=== PATIENT | female | born 1965 | race Caucasian/White ===

== ENCOUNTER → 2017-05-21 09:19 | Outpatient (CLI) | payer OTHER, SELFPAY ==
--- NOTE | 2017-05-21 10:00 | MRI_ITS ---
STUDY: MRI BRAIN WITH AND WITHOUT CONTRAST REASON FOR EXAM: Female, 52 years old. MS, diplopia TECHNIQUE: Standardized multiplanar fat and water weighted pulse sequences were obtained. 9 ml of Gadavist contrast material was administered intravenously for the contrast portion of the examination. COMPARISON: 03/28/2016 FINDINGS: Normal size of the ventricles and extra-axial spaces for the patient's age. Multiple stable areas of abnormal T2 hyperintensity are present in the periventricular and subcortical white matter compatible with demyelinating disease. No new lesions are seen. None of the pre-existing lesions are associated with restricted diffusion or postcontrast enhancement currently. Normal bilateral basal ganglia. Normal thalami. There is no extra-axial fluid accumulation. Normal flow voids within the major intracranial circulation suggesting patency by spin echo criteria. Normal venous enhancement. There is no enhancing intra-axial or extra-axial abnormality. Normal sella turcica, pituitary gland, infundibular stalk, optic chiasm and hypothalamus. Stable pineal cyst. Normal midbrain, manuel and medulla. Normal cerebellum. Normal basal cisterns. Normal bilateral temporal bones. Normal bilateral internal auditory canals. No demonstrated orbital abnormality, within the constraints of a routine brain study. Normal visualized paranasal sinuses. Hyperostosis frontalis interna. Normal visualized soft tissue structures. Normal visualized upper cervical spine. MRI/Brain W/WO Contrast IMPRESSION: Stable MRI appearance of multiple white matter lesions compatible with demyelinating disease. No new lesions are seen. None of the lesions are currently associated with restricted diffusion or postcontrast enhancement. Stable pineal cyst. Electronically Signed: Robert Rocha MD at 11:06 EDT Tel , Service support ,
== END ==
PROVIDERS: Family Provider Family Medicine; PCP Family Medicine; Visit Provider Internal Medicine
DX: G35 Multiple sclerosis (principal)
CPT/HCPCS: 70553; A9585

== ENCOUNTER 2017-07-31 09:22 | Emergency (ER) | payer OTHER, SELFPAY ==
[2017-07-31 09:23] VITALS: BP 150/103; PULSE 115; RESP 23; TEMP 37.1; O2SAT 98; BMI 31.3
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
[2017-07-31 11:18] VITALS: BP 125/94; PULSE 98; RESP 20; O2SAT 97
== END 2017-07-31 11:19 | disposition home or self-care (01) ==
LOC: ED 10:20
PROVIDERS: Emergency Provider Emergency Medicine; Family Provider Family Medicine; PCP Family Medicine
DX: S50.12XA Contusion of left forearm, initial encounter (principal); S80.02XA Contusion of left knee, initial encounter; S70.02XA Contusion of left hip, initial encounter; V89.2XXA Person injured in unspecified motor-vehicle accident, traffic, initial encounter; Y93.89 Activity, other specified; Y92.9 Unspecified place or not applicable; G35 Multiple sclerosis
CPT/HCPCS: 73090; 73502; 73564; 99282

== ENCOUNTER → 2019-08-05 06:16 | Outpatient (CLI) | payer OTHER, SELFPAY ==
[2019-08-05 06:59] LABS: Absolute Lymphocyte Count 6.03 X10^3/uL (0.83-4.51); Absolute Neutrophil Count 4.1 X10^3/uL (2.0-7.7); Basophil# 0.06 X10^3/uL; Basophil% 0.5 % (0-1); Eosinophil# 0.31 X10^3/uL; Eosinophils% 2.8 % (0-5); Hematocrit 40.5 % (37-47); Hemoglobin 14.3 g/dL (12.0-15.0); Lymphocyte # 6.03 X10^3/ul (4.0); Lymphocyte % 53.9 % (19-41); Mean Corp Hgb Conc 35.3 g/dL (32-36); Mean Corpuscular Volume 87.9 fL (81-99); Mean Platelet Vol. 10.3 fl (6.2-12.0); Monocyte# 0.63 X10^3/uL; Monocyte% 5.6 % (0-10); NRBC Flagged by Analyzer 0.5 % (0-5); Neutrophil # 4.09 X10^3/uL (2.7-7.7); Neutrophil % 36.7 % (47-70); POSITIVE DIFFERENTIAL YES; Platelet Count 182 K/mm3 (150-450); RBC Distribution Width SD 44.5 fl (35.1-43.9); Red Blood Count 4.61 M/mm3 (4.2-5.4); White Blood Count 11.2 K/mm3 (4.4-11.0)
[2019-08-05 07:02] LABS: Differential Indicated SCAN CRITERIA MET
[2019-08-05 07:28] LABS: ALB/GLOB Ratio 1.1 RATIO (0.9-2.4); AST(SGOT) 24 U/L (15-37); Alanine Aminotransfer ALT/SGPT 40 U/L (13-56); Albumin, Serum 3.6 g/dL (3.2-5.0); Alkaline Phosphatase 132 U/L (45-117); Anion Gap 5 (5-15); BUN 11 mg/dL (7-18); BUN/Creat Ratio 16.8 RATIO (10-20); Calcium,Total 8.9 mg/dL (8.5-10.1); Chloride 105 mmol/L (98-107); Cholesterol 214 mg/dL (200); Creatinine, Serum 0.65 mg/dL (0.55-1.02); EST Glomerular Filtration Rate 100 mL/min (>60); Est Glom Filt Rate - Afr Amer 121 mL/min (>60); Globulin 3.3 g/dL (2.2-4.2); Glucose 275 mg/dL (74-106); High Density Lipoprotein 30 mg/dL; Microalbumin,Random Urine 33.5 mg/L (NO RANGE EST.); Microalbumin:Creatinine Ratio 20.3 mg/g CRE (<30 mg/g CRE); Potassium 3.6 mmol/L (3.5-5.1); Protein, Total 6.9 g/dL (6.4-8.2); Sodium Level 139 mmol/L (136-145); Triglycerides 847 mg/dL
[2019-08-05 08:06] LABS: Hemoglobin A1c 9.2 % (3.8-5.6)
[2019-08-05 08:24] LABS: Vitamin D,25 Hydroxy 57.4 ng/mL
== END ==
PROVIDERS: PCP Family Medicine; Referring Provider Family Medicine; Visit Provider Family Medicine
DX: E78.5 Hyperlipidemia, unspecified (principal); D72.829 Elevated white blood cell count, unspecified; E11.65 Type 2 diabetes mellitus with hyperglycemia; Z51.81 Encounter for therapeutic drug level monitoring
CPT/HCPCS: 36415; 80053; 80061; 82043; 82306; 82570; 83036; 85025

== ENCOUNTER → 2020-07-01 09:07 | Outpatient (CLI) | payer OTHER, SELFPAY ==
[2020-07-01 10:14] LABS: Absolute Lymphocyte Count 6.95 X10^3/uL (0.83-4.51); Absolute Neutrophil Count 5.6 X10^3/uL (2.0-7.7); Basophil# 0.07 X10^3/uL; Basophil% 0.5 % (0-1); Eosinophil# 0.23 X10^3/uL; Eosinophils% 1.7 % (0-5); Hematocrit 42.3 % (37-47); Lymphocyte # 6.95 X10^3/ul (0.83-4.51); Lymphocyte % 51.2 % (19-41); Mean Corp Hgb Conc 35.5 g/dL (32-36); Mean Corpuscular Hgb 31.4 pg (27.0-32.0); Mean Corpuscular Volume 88.5 fL (81-99); Mean Platelet Vol. 10.5 fl (6.2-12.0); Monocyte# 0.61 X10^3/uL; Monocyte% 4.5 % (0-10); NRBC Flagged by Analyzer 0.7 % (0-5); Neutrophil # 5.62 X10^3/uL (2.7-7.7); Neutrophil % 41.4 % (47-70); POSITIVE DIFFERENTIAL YES; POSITIVE MORPHOLOGY YES; Platelet Count 227 K/mm3 (150-450); RBC Distribution Width CV 14.4 % (11.6-14.6); RBC Distribution Width SD 46.1 fl (35.1-43.9); Red Blood Count 4.78 M/mm3 (4.2-5.4); White Blood Count 13.6 K/mm3 (4.4-11.0)
[2020-07-01 10:17] LABS: Differential Indicated SCAN CRITERIA MET
[2020-07-01 10:41] LABS: Reactive Lymphocyte 1+
[2020-07-01 10:45] LABS: Vitamin D,25 Hydroxy 41.7 ng/mL
[2020-07-01 11:02] LABS: ALB/GLOB Ratio 1.1 RATIO (0.9-2.4); AST(SGOT) 22 U/L (15-37); Alanine Aminotransfer ALT/SGPT 31 U/L (13-56); Albumin, Serum 3.9 g/dL (3.2-5.0); Alkaline Phosphatase 166 U/L (45-117); Anion Gap 9 (5-15); BUN 15 mg/dL (7-18); BUN/Creat Ratio 21.5 RATIO (10-20); Calcium,Total 9.1 mg/dL (8.5-10.1); Chloride 97 mmol/L (98-107); EST Glomerular Filtration Rate 93 mL/min (>60); Est Glom Filt Rate - Afr Amer 112 mL/min (>60); Globulin 3.4 g/dL (2.2-4.2); Glucose 327 mg/dL (74-106); Potassium 3.6 mmol/L (3.5-5.1); Protein, Total 7.3 g/dL (6.4-8.2); Sodium Level 133 mmol/L (136-145); Thyroid Stim Hormone (TSH) 1.37 uIU/mL (0.358-3.74)
== END ==
PROVIDERS: PCP Family Medicine
DX: G35 Multiple sclerosis (principal); R53.83 Other fatigue; E55.9 Vitamin D deficiency, unspecified; Z79.899 Other long term (current) drug therapy
CPT/HCPCS: 36415; 80053; 82306; 84443; 85025

== ENCOUNTER → 2021-06-30 | Outpatient (CLI) | payer OTHER, SELFPAY ==
[2021-06-30 13:32] LABS: Absolute Lymphocyte Count 6.62 X10^3/uL (0.83-4.51); Absolute Neutrophil Count 5.2 X10^3/uL (2.0-7.7); Basophil# 0.07 X10^3/uL; Basophil% 0.5 % (0-1); Eosinophil# 0.31 X10^3/uL; Eosinophils% 2.4 % (0-5); Hematocrit 41.7 % (37-47); Hemoglobin 15.3 g/dL (12.0-15.0); Lymphocyte # 6.62 X10^3/ul (0.83-4.51); Mean Corp Hgb Conc 36.7 g/dL (32-36); Mean Corpuscular Hgb 32.1 pg (27.0-32.0); Mean Corpuscular Volume 87.4 fL (81-99); Mean Platelet Vol. 9.9 fl (6.2-12.0); Monocyte# 0.68 X10^3/uL; Monocyte% 5.2 % (0-10); NRBC Flagged by Analyzer 0.8 % (0-5); Neutrophil # 5.22 X10^3/uL (2.7-7.7); Neutrophil % 40.2 % (47-70); POSITIVE DIFFERENTIAL YES; Platelet Count 238 K/mm3 (150-450); RBC Distribution Width CV 13.3 % (11.6-14.6); RBC Distribution Width SD 42.8 fl (35.1-43.9); Red Blood Count 4.77 M/mm3 (4.2-5.4)
[2021-06-30 13:37] LABS: Differential Indicated SCAN CRITERIA MET
[2021-06-30 14:08] LABS: ALB/GLOB Ratio 1.2 RATIO (0.9-2.4); AST(SGOT) 20 U/L (15-37); Alanine Aminotransfer ALT/SGPT 30 U/L (13-56); Albumin, Serum 4.1 g/dL (3.2-5.0); Alkaline Phosphatase 155 U/L (45-117); Anion Gap 6 (5-15); BUN 13 mg/dL (7-18); BUN/Creat Ratio 16.8 RATIO (10-20); Calcium,Total 9.5 mg/dL (8.5-10.1); Chloride 102 mmol/L (98-107); Creatinine, Serum 0.77 mg/dL (0.55-1.02); EST Glomerular Filtration Rate 82 mL/min (>60); Est Glom Filt Rate - Afr Amer 99 mL/min (>60); Globulin 3.4 g/dL (2.2-4.2); Glucose 303 mg/dL (74-106); Potassium 3.9 mmol/L (3.5-5.1); Protein, Total 7.5 g/dL (6.4-8.2); Sodium Level 135 mmol/L (136-145)
[2021-07-04 15:08] LABS: HEPATITIS B SURFACE AG Negative (Negative); Hepatitis A IgM Antibody Negative (Negative); Hepatitis B Core AB IgM Negative (Negative); Immunoglobulin A 143 mg/dL (87-352); Immunoglobulin G 485 mg/dL (586-1602); QNTFERON TB Mitogen Value > 10.00 IU/mL (.); QNTFERON TB Nil Value 0.61 IU/mL (.); QNTFERON TB1+ Ag Value 0.13 IU/mL (.); QNTFERON TB2+ Ag Value 0.16 IU/mL (.)
[2021-07-04 20:08] LABS: Hep C Antibodies <0.1 s/co ratio (0.0-0.9)
[2021-07-04 20:09] LABS: Immunoglobulin M 32 mg/dL (26-217); QNTIFERON TB Positive Criteria Negative (Negative)
== END | disposition home or self-care (01) ==
LOC: LAB 13:16
PROVIDERS: PCP Family Medicine; Referring Provider Nurse Practitioner Gerontology; Visit Provider Nurse Practitioner Gerontology
DX: R53.82 Chronic fatigue, unspecified (principal); Z79.899 Other long term (current) drug therapy
CPT/HCPCS: 36415; 80053; 80074; 82784; 85025; 86480

== ENCOUNTER → 2021-09-29 | Outpatient (CLI) | payer OTHER, SELFPAY ==
--- NOTE | 2021-09-29 15:30 | MRI_ITS ---
EXAM: MR HEAD WITHOUT AND WITH INTRAVENOUS CONTRAST CLINICAL INDICATION: MS Technologist Notes Other, Diagnosed with MS 7 years ago. Doing new MS treatment. MR Brain 05/21/17 TECHNIQUE: Multiplanar and multisequence MR images of the brain were obtained without and with intravenous contrast. This report was created using [employer] technology. CONTRAST: IV 15mL DOTAREM COMPARISON: 05/21/17 FINDINGS: BRAIN AND EXTRA-AXIAL SPACES: Increased FLAIR regions in the brain may signify early microvascular ischemic changes, a demyelinating process, vasculitis, or sequela related to migraines. The number of lesions have increased. The size of the lesions that were previously identified have increased in size as well. If this is related to a demyelinating process such as multiple sclerosis, the overall findings are worse. No active plaques visualized. No intra- or extra-axial hemorrhage. No intracranial mass or mass effect. Posterior fossa structures are unremarkable. Basal cisterns are patent. SELLA: Unremarkable. Normal sella turcica, pituitary gland, infundibular stalk, optic chiasm and hypothalamus. AUDITORY SYSTEM: Unremarkable. The internal auditory canals are patent. BONES/JOINTS: Unremarkable. No discrete lytic or blastic abnormalities. SINUSES: Unremarkable as visualized. Clear. MASTOID AIR CELLS: Unremarkable as visualized. Clear. ORBITS: Unremarkable as visualized. Both globes, extraocular muscles, optic nerves and retrobulbar fat appear unremarkable. VASCULATURE: Unremarkable as visualized. Normal flow voids in the major intracranial circulation. OTHER FINDINGS: There are no enhancing lesions. MRI/Brain W/WO Contrast IMPRESSION: Increased FLAIR regions in the brain may signify early microvascular ischemic changes, a demyelinating process, vasculitis, or sequela related to migraines. The number of lesions have increased. The size of the lesions that were previously identified have increased in size as well. If this is related to a demyelinating process such as multiple sclerosis, the overall findings are worse. No active plaques visualized. Electronically Signed: Seth Livingston MD at 17:06 EDT ,
[2021-09-29 16:01] LABS: CREATININE FINGERSTICK < 0.9 mg/dL (0.55-1.02); EGFR FINGERSTICK > 60.0000 mL/min (>60)
== END | disposition home or self-care (01) ==
LOC: MRI 15:27
PROVIDERS: PCP Family Medicine; Visit Provider Internal Medicine
DX: G35 Multiple sclerosis (principal)
CPT/HCPCS: 70553; A9575

== ENCOUNTER → 2021-12-29 | Outpatient (CLI) | payer OTHER, SELFPAY ==
[2021-12-29 08:53] LABS: Absolute Lymphocyte Count 1.79 X10^3/uL (0.83-4.51); Absolute Neutrophil Count 5.4 X10^3/uL (2.0-7.7); Basophil# 0.04 X10^3/uL; Basophil% 0.5 % (0-1); Eosinophil# 0.39 X10^3/uL; Eosinophils% 4.8 % (0-5); Hematocrit 43.1 % (37-47); Hemoglobin 15.3 g/dL (12.0-15.0); Lymphocyte # 1.79 X10^3/ul (0.83-4.51); Lymphocyte % 21.8 % (19-41); Mean Corp Hgb Conc 35.5 g/dL (32-36); Mean Corpuscular Hgb 31.2 pg (27.0-32.0); Mean Corpuscular Volume 87.8 fL (81-99); Monocyte# 0.61 X10^3/uL; Monocyte% 7.4 % (0-10); NRBC Flagged by Analyzer 0 % (0-5); Neutrophil # 5.35 X10^3/uL (2.7-7.7); Neutrophil % 65.3 % (47-70); Platelet Count 214 K/mm3 (150-450); RBC Distribution Width SD 41.5 fl (35.1-43.9); Red Blood Count 4.91 M/mm3 (4.2-5.4); White Blood Count 8.2 K/mm3 (4.4-11.0)
[2021-12-29 09:20] LABS: ALB/GLOB Ratio 1.2 RATIO (0.9-2.4); AST(SGOT) 17 U/L (15-37); Alanine Aminotransfer ALT/SGPT 25 U/L (13-56); Albumin, Serum 3.7 g/dL (3.2-5.0); Alkaline Phosphatase 137 U/L (45-117); Anion Gap 8 (5-15); BUN 11 mg/dL (7-18); BUN/Creat Ratio 17.7 RATIO (10-20); Calcium,Total 9.1 mg/dL (8.5-10.1); Chloride 102 mmol/L (98-107); Creatinine, Serum 0.62 mg/dL (0.55-1.02); EST Glomerular Filtration Rate 105 mL/min (>60); Est Glom Filt Rate - Afr Amer 127 mL/min (>60); Globulin 3.2 g/dL (2.2-4.2); Glucose 236 mg/dL (74-106); Potassium 3.7 mmol/L (3.5-5.1); Protein, Total 6.9 g/dL (6.4-8.2); Sodium Level 136 mmol/L (136-145)
[2021-12-30 08:10] LABS: Immunoglobulin A 131 mg/dL (87-352); Immunoglobulin G 429 mg/dL (586-1602)
[2021-12-31 09:48] LABS: Immunoglobulin M 36 mg/dL (26-217)
== END | disposition home or self-care (01) ==
LOC: LAB 08:01
PROVIDERS: PCP Family Medicine; Referring Provider Internal Medicine; Visit Provider Internal Medicine
DX: Z79.899 Other long term (current) drug therapy (principal)
CPT/HCPCS: 36415; 80053; 82784; 85025

== ENCOUNTER → 2022-01-05 | Outpatient (CLI) | payer OTHER, SELFPAY ==
--- NOTE | 2022-01-05 09:55 | RAD_ITS ---
STUDY: X-RAY - PELVIS AND LEFT HIP REASON FOR EXAM: Female, 56 years old. PAIN IN HIP TECHNIQUE: 3 views of the pelvis and hip. COMPARISON: 07/31/2017 FINDINGS: There is mild joint space narrowing of both hips which is symmetric. Left hip demonstrates no evidence of fracture, subluxation or dislocation. Bony pelvis is intact. RAD/HIP, UNI W/ Pelvis 2-3 Views IMPRESSION: Stable findings. Mild bilateral hip osteoarthritis. Electronically Signed: Keyon Malik MD, JACQUELINE at 10:43 EDT ,
== END | disposition home or self-care (01) ==
LOC: MTRAD 09:50
PROVIDERS: PCP Family Medicine; Referring Provider Family Medicine; Visit Provider Family Medicine
DX: M25.552 Pain in left hip (principal)
CPT/HCPCS: 73502

== ENCOUNTER 2022-02-15 16:00 | Outpatient (RCR) | payer OTHER, SELFPAY ==
--- NOTE | 2022-01-22 07:39 | HP.PTEVAL_ITS ---
Patient's Visit Information JEROME NEWELL is a 56 year old F referred to Physical Therapy by Dr. Katrin Kim DO with a diagnosis of L hip pain. Date of Evaluation: 01/22/22 Physical Therapist: SUKHI OttoT, OCS, CSCS - Visit Plan Frequency: 3x /Week Duration: 4-6 Weeks Plan: 3x/week for 4-6 weeks for... Start aquatic therapy for Lumbar extension, core and hip strengthening, stretch L quad and HS. Progress to I with these adn general workout.. Pt motivated to get in pool senior care but if the heat is a problem we may switch to gym exercises toward I. - Subjective I have scitic pain form L LB down lateral leg to patrick only on the left. She has MS and that is her weak side. It has been hurting for a month and insidious onset. Might have something to do with driving alot up to clinic for new MS treatment. Worse after driving. Was hard to sit and sleep also. Feels better standing and walking and moving. 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 Can be painful to get out of chair. Getting out of car is tough. Sleep is OK now but was only at 4 hrs sleep for a while. Needs to lie flat. Work is 3 days of 5 hr shifts. It is exhausting. Walks for exercise. Hobbies: grandbabies, 1 yo up to 11 yo. Basic ADLs are getting done. Steps to laundry and not much of a problem. - Pain L LB and leg Pain Intensity (Out of 10): 0 Pain Intensity Range: 0, 8 Comment: sitting and lying worse. - Objective Walks I into PT without antalgia, transfers bed and chair I, steps reciprocal with rail. Weaker on L. LB AROM ext mod limited and painful centrally, flexion min limited adn slow but able. SB are good. Hip PROM painful throughout L hip but motion pretty good, endrange pain er, IR, and flexion obvious but ROM similar to R. - scour.+ MARY BETH, + FADDIR on L. - slump and - SLR. reflexes 2/3 patella and achilles B. Sensation LE WNL to gross light touch. Strength L LE 4 - and R 4, except hip ext adn abd 3+ L and 4- R. L leg is tender totouch pretty much throughout the whole leg, PA pressure is painful at L4 in spine but not in paraspinals. - Balance/Special Test Scores Lower Extremity Functional Score: 23 - Goals Goal 1:: sit in chair 60 minutes without increased pain Goal Time Frame: 4-6 Weeks Goal 2:: I appropr HEP to limit future problems(pool vs gym) Goal Time Frame: 4-6 Weeks Goal 3:: Pain 2/10 at worst and 75% improved in back and L leg. Goal Time Frame: 4-6 Weeks Goal 4:: LEFS 43 Goal Time Frame: 4-6 Weeks - Rehabilitation Potential Physical Therapy Diagnosis: Hip OA vs Lumbar derangement. Rehabilitation Potential: Fair - Anticipated Interventions Patient/Client Instruction: Educate patient on: Condition, Plan of Care For the Purpose of:: To decrease pain, To increase ROM, To improve nutrient delivery to tissue, To improve muscle performance and motor function, To increase tolerance to activity/condition/position Therapeutic Exercise to Include: Strength training, Postural training, Flexibilty training, Gait and locomotor training, In an aquatic setting, Passive ROM, Active ROM, Dynamic Lumbar Stabilization For the Purpose of:: To decrease pain, To increase ROM, To improve nutrient delivery to tissue, To improve muscle performance and motor function, To improve ability to perform ADL's, To improve performance and independence with ADL's, To improve ability of physical actions for home/community/work/leisure Thank you for the opportunity to evaluate your patient. For Medicare and Medicare HMO plans, please review the plan of care and approve it. It will need to be FAXED BACK to us at [phone] for Medicare purposes. For Medicare only, by signing this I certify the plan of care. Please let me know if there are questions or concerns regarding this plan of care. Physician Signature: Date:
--- NOTE | 2022-02-15 16:19 | HP.PTDCSUM ---
It has been my pleasure to treat JEROME NEWELL referred by Dr. Katrin Kim DO, with the diagnosis of L hip pain for a total of 10 visit(s). Discharge Date: 02/15/22 Please see the following information for a summary of their discharge status. Subjective: I am so much better. Scitaica is not radiating nearly as far. Clicking is gone and can mange it with tight core and postural focus. Increasing exercise gave her a little pain in her MS thigh L. Sleeping better this week up to 6 hours whcih is good for her. To doctor in May. Will be busy at the holidays but plans on joining in March to continue in pool, has lists. L LB and leg Pain Intensity (Out of 10): 2 % Improvement: 90 Objective/Function: Walks I without gait deviations. L/S AROKM is full and without pain or hesitation. Trasnferring easy. Goal 1:: sit in chair 60 minutes without increased pain Goal Progress: Goal Met Goal 2:: I appropr HEP to limit future problems(pool vs gym) Goal Progress: Goal Met, [place] Goal 3:: Pain 2/10 at worst and 75% improved in back and L leg. Goal Progress: Progressing Goal 4:: LEFS 43 Goal Progress: Goal Met Plan: d/c Discharge Comments: Will continue in pool I If there are questions or concerns regarding this patient's physical therapy, please feel free to call me at [phone]. Thank you for the referral of this patient. Sincerely, Armand Cagle, DPT, OCS, CSCS Balance/Gait/Functional tests - Balance/Special Test Scores Lower Extremity Functional Score: 50
== END 2022-02-15 19:00 | disposition home or self-care (01) ==
LOC: PT 16:00
PROVIDERS: PCP Family Medicine; Referring Provider Family Medicine; Visit Provider Family Medicine
DX: M25.552 Pain in left hip (principal)
CPT/HCPCS: 97113; 97162; 97164

== ENCOUNTER → 2022-12-14 | Outpatient (CLI) | payer MEDICAID, SELFPAY ==
[2022-12-14 08:38] LABS: Absolute Lymphocyte Count 2.02 X10^3/uL (0.83-4.51); Absolute Neutrophil Count 5.2 X10^3/uL (2.0-7.7); Basophil# 0.05 X10^3/uL; Basophil% 0.6 % (0-1); Eosinophil# 0.19 X10^3/uL; Eosinophils% 2.3 % (0-5); Hematocrit 44.8 % (37-47); Lymphocyte # 2.02 X10^3/ul (0.83-4.51); Lymphocyte % 24.6 % (19-41); Mean Corp Hgb Conc 33.5 g/dL (32-36); Mean Corpuscular Volume 89.6 fL (81-99); Mean Platelet Vol. 10.1 fl (6.2-12.0); Monocyte# 0.72 X10^3/uL; Monocyte% 8.8 % (0-10); NRBC Flagged by Analyzer 0 % (0-5); Neutrophil % 63.3 % (47-70); Platelet Count 238 K/mm3 (150-450); RBC Distribution Width CV 12.9 % (11.6-14.6); RBC Distribution Width SD 41.8 fl (35.1-43.9); White Blood Count 8.2 K/mm3 (4.4-11.0)
[2022-12-14 09:08] LABS: ALB/GLOB Ratio 1.1 RATIO (0.9-2.4); AST(SGOT) 12 U/L (15-37); Alanine Aminotransfer ALT/SGPT 25 U/L (13-56); Albumin, Serum 3.7 g/dL (3.2-5.0); Alkaline Phosphatase 133 U/L (45-117); Anion Gap 6 (5-15); BUN 13 mg/dL (7-18); BUN/Creat Ratio 22.1 RATIO (10-20); Calcium,Total 9.1 mg/dL (8.5-10.1); Chloride 105 mmol/L (98-107); Creatinine, Serum 0.59 mg/dL (0.55-1.02); EST Glomerular Filtration Rate 112 mL/min (>60); Est Glom Filt Rate - Afr Amer 135 mL/min (>60); Globulin 3.3 g/dL (2.2-4.2); Glucose 213 mg/dL (74-106); Potassium 3.6 mmol/L (3.5-5.1); Sodium Level 139 mmol/L (136-145)
[2022-12-19 04:07] LABS: Immunoglobulin A 102 mg/dL (87-352); Immunoglobulin E 13 IU/mL (6-495); Immunoglobulin G 402 mg/dL (586-1602); Immunoglobulin M 28 mg/dL (26-217)
== END | disposition home or self-care (01) ==
LOC: LAB 07:54
PROVIDERS: PCP Family Medicine
DX: Z79.899 Other long term (current) drug therapy (principal)
CPT/HCPCS: 36415; 80053; 82784; 82785; 85025